=== PATIENT | female | born 1950 | race Caucasian/White ===

== ENCOUNTER → 2017-01-08 | Outpatient (CLI) | payer OTHER ==
[~2017-01-08] MED LIST: EFFEXOR XR PO; ZETIA PO
--- NOTE | ~2017-01-08 | MY11 ---
[facility] A Service of [facility] RADIOLOGY TEXT RESULTS PATIENT: DEEPALI HEADLEY LOCATION: [facility] : 54 UNIT #: [id number] AGE: [address]: Flory Gaspar MD SEX: F ORDER DR: [id number] [facility]. [place], [place] [address] [id number] O MR#: [id number] Acc #: [id number] NAME: DEEPALI HEADLEY : 1950 SEX: F STUDY DATE/TIME: 01/08/2017 12:50 UNIT: [facility] ROOM: STUDY DESCRIPTION: MY Mammogram Screening Dig Justo Attending Physician: Flory Gaspar M.D. Referring Physician: Flory Gaspar M.D. Ordering Physician: Flory Gaspar M.D. Primary Care Physician: Flory Gaspar M.D. MEDICAL IMAGING REPORT This report is preliminary unless electronic signature is present EXAM Bilateral digital screening mammogram with CAD 01/08/2017 INDICATIONS 67-year-old female for routine screening. No reported problems. No personal or family history of breast cancer. No surgeries. TECHNIQUE CC and MLO views of the breasts were obtained and reviewed with an approved CAD device. COMPARISON 06/20/2012, 03/05/2011, 03/03/2010 FINDINGS Breast parenchyma is composed of scattered fibroglandular densities. The pattern is unchanged. There is no new dominant nodule or mass in either breast. No new suspicious clustered microcalcifications. Benign-appearing nodularity in both breasts is stable. IMPRESSION Benign screening mammogram, 1 year followup recommended. Patient's over the age of 40 are entered into a reminder system with target due date for the next mammogram. A result letter will be sent to the patient. BIRADS: 2 Benign findings. Dictated by... Sumit Field M.D. [facility] A Service [facility] RADIOLOGY TEXT RESULTS PATIENT: DEEPALI HAEDLEY LOCATION: [facility] : 52 UNIT #: [id number] AGE: [address]: Flory Gaspar MD SEX: F ORDER DR: THIS IS AN ELECTRONICALLY VERIFIED REPORT Sumit Field M.D. at 01/10/2017 5:34 PM NENA/virgil TD: 01/09/2017 13:46 JOB #: [id number] MEDICAL IMAGING REPORT Page 1 of 1 COPY
== END | disposition home or self-care (01) ==
LOC: CWCC 12:38
DX: Z12.31 Encounter for screening mammogram for malignant neoplasm of breast (principal)
CPT/HCPCS: G0202

== ENCOUNTER → 2017-04-03 | Outpatient (CLI) | payer OTHER ==
--- NOTE | ~2017-04-03 | NM86 ---
[facility] A Service of [facility] RADIOLOGY TEXT RESULTS PATIENT: DEEPALI HEADLEY LOCATION: [facility] : 52 UNIT #: [id number] AGE: [address]: Flory Gaspar MD SEX: F ORDER DR: [id number] [facility] [address] [facility] [place], [place] [address] [id number] O MR#: [id number] Acc #: [id number] NAME: DEEPALI HEADLEY. : 1950 SEX: F STUDY DATE/TIME: 04/03/2017 7:20 UNIT: [facility] ROOM: STUDY DESCRIPTION: NM Thyroid Img W Uptake Attending Physician: Flory Gaspar M.D. Referring Physician: Flory Gaspar M.D. Ordering Physician: Flory Gaspar M.D. Primary Care Physician: Flory Gaspar M.D. MEDICAL IMAGING REPORT This report is preliminary unless electronic signature is present EXAM Nuclear medicine thyroid uptake and scan. DATE 04/03/2017 HISTORY Hypothyroidism. Patient states history of heart palpitations/flutters, increased nervousness, increased appetite lately. COMPARISON None. FINDINGS Following the ingestion of 162.4 mcCi I-123 in capsular form, delayed 24-hour pinhole images were obtained of the neck in the anterior BOLANOS and ALLEY projections. Normal homogeneous radiopharmaceutical uptake is demonstrated within both thyroid lobes which appear relatively symmetric. No hot or cold nodules are identified. The calculated 24-hour I-123 uptake is 8.4% (normal at this institution 10% to 30%). IMPRESSION 1. Abnormally low 24-hour I-123 uptake of 8.4%. 2. Normal scintigraphic appearance of the thyroid gland without hot or cold nodularity. Dictated by... Celeste Hutton M.D. THIS IS AN ELECTRONICALLY VERIFIED REPORT Celeste Hutton M.D. at 04/05/2017 9:33 PM DON/jesse [facility] A Service of [facility] RADIOLOGY TEXT RESULTS PATIENT: DEEPALI HEADLEY LOCATION: [facility] #: [id number] : 54 UNIT #: [id number] AGE: [address]: Flory Gaspar MD SEX: F ORDER DR: TD: 04/03/2017 12:45 JOB #: [id number] MEDICAL IMAGING REPORT Page 1 of 1 COPY
== END | disposition home or self-care (01) ==
LOC: CNUC 06:47
DX: E21.3 Hyperparathyroidism, unspecified (principal)
CPT/HCPCS: 78014; A9516

== ENCOUNTER → 2017-05-02 | Outpatient (CLI) | payer OTHER ==
--- NOTE | ~2017-05-02 | ST ---
Unit #: [id number] #: [id number] Patient: DEEPALI HEADLEY [id number] [address] [id number] O MR#: [id number] NAME: DEEPALI HEADLEY. : 1950 SEX: F STUDY DATE/TIME: 05/02/2017 UNIT: [facility] ROOM: STUDY DESCRIPTION: Stress Test Attending Physician: Flory Gaspar M.D. Referring Physician: Flory Gaspar M.D. Primary Care Physician: Flory Gaspar M.D. CARDIOLOGY REPORT EXAM EKG Portion of a Lexiscan Cardiolite Stress Test REASON FOR EXAM Family history of heart disease and shortness of breath. DISCUSSION Baseline EKG reveals sinus rhythm with a ventricular rate of 76 beats per minute. Poor R wave progression in the anterior leads. A total of 0.4 mg of Lexiscan was injected per protocol followed by Cardiolite. There were no complaints of chest pain. There were no sustained arrhythmias noted. There were no ST or T wave changes to suggest ischemia. Maximal heart rate was 99 beats per minute with maximum blood pressure of 142/85 mmHg. The test was stopped due to protocol completion. IMPRESSION 1. Negative EKG portion of Lexiscan Cardiolite stress test. 2. There were no complaints of chest pain. 3. There were no sustained arrhythmias noted. 4. There were no ST or T wave changes to suggest ischemia. 5. Please correlate with Cardiolite images. Dictated by... Lois Rodrigues APRN for Krunal Mcgee TD: 05/02/2017 10:17 JOB #: [id number] CARDIOLOGY REPORT Page 1 of 1 X CARDIOLOGY REPORT
--- NOTE | ~2017-05-02 | TH ---
Unit #: [id number] #: [id number] Patient: DEEPALI HEADLEY [id number] [address] [id number] O MR#: [id number] NAME: DEEPALI HEADLEY. : 1950 SEX: F STUDY DATE/TIME: 05/02/2017 UNIT: [facility] ROOM: STUDY DESCRIPTION: Lexiscan stress test - Nuclear Attending Physician: Flory Gaspar M.D. Referring Physician: Flory Gaspar M.D. Primary Care Physician: Flory Gaspar M.D. CARDIOLOGY REPORT PROCEDURE PERFORMED Lexiscan Cardiolite stress test - Nuclear portion. PROCEDURE Using technetium 99m-labeled Cardiolite, rest and stress SPECT images were obtained. Multiple SPECT images were obtained in various views, including horizontal and vertical long axis and short axis views of the left ventricle. Images were obtained by gated SPECT method. The patient was administered 10.94 mCi of Cardiolite at rest. The patient was administered 36 mCi of Cardiolite after Lexiscan infusion was completed. On the stress images, there is normal perfusion noted. The rest images show normal perfusion. Comparing the rest and stress images, there is no stress-induced ischemia noted. The left ventricular ejection fraction is calculated to be 78%. There is no focal wall motion abnormality seen. CONCLUSION 1. No stress-induced ischemia noted. 2. The left ventricular ejection fraction is calculated to be 78%. 3. There is no focal wall motion abnormality seen. 4. Normal Lexiscan Cardiolite stress test. Dictated by... Krunal Mcgee/chema TD: 05/02/2017 14:27 JOB #: [id number] CARDIOLOGY REPORT Page 1 of 1 X Tanya Mustafa MD <ELECTRONICALLY SIGNED> 05/30/17 1524 CARDIOLOGY REPORT
== END | disposition home or self-care (01) ==
LOC: CNUC 07:38
DX: R94.31 Abnormal electrocardiogram [ECG] [EKG] (principal); Z82.49 Family history of ischemic heart disease and other diseases of the circulatory system
CPT/HCPCS: 78452; 93017; A9500; J2785

== ENCOUNTER → 2017-05-07 | Outpatient (CLI) | payer OTHER ==
[2017-05-07 16:09] LABS: THYROID STIMULATING HORMONE 0.27 uIU/ml (0.34-5.60)
[2017-05-07 16:14] LABS: FREE T3 3.4 pg/mL (2.5-3.9)
[2017-05-07 16:15] LABS: FREE THYROXIN (T4) 0.91 ng/dL (0.58-1.64)
== END | disposition home or self-care (01) ==
LOC: CLAB 14:41
PROVIDERS: Internal Medicine
DX: E03.9 Hypothyroidism, unspecified (principal)
CPT/HCPCS: 36415; 82607; 84439; 84443; 84445; 84481; 86376

== ENCOUNTER → 2017-05-07 | Outpatient (CLI) | payer OTHER ==
--- NOTE | ~2017-05-07 | US128 ---
[id number] [facility] [address] [facility]. [place], [place] [address] [id number] O MR#: [id number] Acc #: [id number] NAME: DEEPALI HEADLEY : 1950 SEX: F STUDY DATE/TIME: 05/07/2017 13:58 UNIT: [facility] ROOM: STUDY DESCRIPTION: Thyroid Attending Physician: Dillon Fuentes M.D. Referring Physician: Dillon Fuentes M.D. Ordering Physician: Dillon Fuentes M.D. Primary Care Physician: Flory Gaspar M.D. MEDICAL IMAGING REPORT This report is preliminary unless electronic signature is present EXAM Ultrasound thyroid, 05/07/2017 HISTORY 67-year-old female with history of hyperthyroidism. Decreased radioiodine uptake on thyroid scan 04/03/2017, with normal radioiodine thyroid scan images. TECHNIQUE Alex-scale ultrasound imaging of the thyroid gland with limited color-flow Doppler vascular imaging. FINDINGS Thyroid size: Thyroid size is normal. Right lobe measures 3.8 x 1.4 x 2.4 cm. Left lobe measures 4.2 x 1.5 x 2.0 cm. Thyroid isthmus thickness 3 mm. Numerous thyroid nodules of varying size are distributed diffusely throughout both thyroid lobes. Most of these are small in size, measuring less than 10 mm. In the right inferior thyroid lobe, there is a 1.5 cm, well-defined, homogeneously hypoechoic nodule. Based on its hypoechoic echotexture and size (greater than or equal to 1.5 cm), ultrasound-guided fine-needle aspiration may be considered. None of the other nodules in either thyroid lobe meet criteria for FNA. IMPRESSION 1. Thyroid size is normal. 2. Multinodular thyroid gland. Numerous bilateral thyroid nodules, most of which are small. 3. Single nodule in the right inferior thyroid lobe meeting criteria for ultrasound-guided FNA. This nodule measures up to 1.5 cm and is homogeneously hypoechoic. Dictated by... Woody Mclean M.D. THIS IS AN ELECTRONICALLY VERIFIED REPORT Woody Mclean M.D. at 05/17/2017 12:21 PM RGW/to TD: 05/07/2017 19:13 JOB #: [id number] MEDICAL IMAGING REPORT Page 1 of 1 COPY
== END | disposition home or self-care (01) ==
LOC: CWCC 13:30
DX: E06.2 Chronic thyroiditis with transient thyrotoxicosis (principal); E04.2 Nontoxic multinodular goiter
CPT/HCPCS: 76536